=== PATIENT | female | born 1935 | race Caucasian/White ===

== ENCOUNTER → 2016-11-06 | Day surgery (SDC) | payer MEDICARE, OTHER ==
[~2016-11-06] MED LIST: AMIODARONE 200200 MG PO; ASPIRIN 325MG325 MG PO; ASPIRIN 81MG TA81 MG PO; BACTRIM 400 MG-1 TAB PO; CARVEDILOL3.125 MG PO; DIGOXIN0.125 MG PO; DILTIAZEM ER 3300 MG PO; FERROUS SULFAT325 M2 PO; LIPITOR40 MG PO; LISINOPRIL 10MG10 MG PO; LISINOPRIL2.5 MG PO; LOPRESSOR 25MG.25 MG PO; PACERONE200 MG PO; PANTOPRAZOLE SO40 MG PO; PATANASE0.6% NS; PRADAXA150 MG PO; PRILOSEC20 M1 PO; RANITIDINE HCL150 MG PO; SPIRONOLACTONE25 MG NG; SYNTHROID 0.1M0.1 MG PO; XARELTO20 MG PO
--- NOTE | 2016-11-06 09:05 | Procedure Note ---
Cardioversion Date of procedure: 11/06/16 Performing provider: Marcello Marlow PA-C with Dr. Smith present Procedure performed: Synchronized electrical cardioversion Diagnosis: A. fib/flutter with CVR Procedure summary: After informed consent obtained, a combination of versed and fentanyl was used to obtain adequate sedation prior to a single, syncronized 150J shock delivered. Successful cardioversion from a. fib/flutter with CVR to sinus bradycardia. Patient tolerated the procedure without complications. Complications: None Conclusion: Successful electrical cardioversion to sinus rhythm. at 0904
== END ==
LOC: CATHLAB 06:41
PROVIDERS: Internal Medicine
PROC: 5A2204Z Restoration of Cardiac Rhythm, Single (ICD-10-PCS; principal; 2016-11-06 08:00)
DX: I48.91 Unspecified atrial fibrillation (principal); I48.92 Unspecified atrial flutter

== ENCOUNTER 2017-01-28 22:00 | Emergency (ER) | payer MEDICARE, OTHER ==
[~2017-01-28] VITALS: Ht 162.6 cm; Wt 64.9 kg
--- NOTE | 2017-01-28 22:18 | Emergency Room Report ---
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 N Clinical Suspician of Infection? N Mental Status: 1 - Regular (Normal Baseline) Sepsis Risk:Low Sepsis Risk Have you (or family members/close friends) recently traveled outside the [place]? N If Yes, where/when: Have you had exposure to infectious disease within the past month? N TB? Other? Specify: Source patient, RN notes reviewed, family, old records Exam Limitations no limitations Comment episode of dizzyness during this pm with no syncope or chest pain has been going on over the last few days Cardiac Chest Pain Chest pain indicative of cardiac No Timing/Duration this evening Severity moderate ALLERGIES Coded Allergies: codeine (Intermediate, "DEATHLY SICK" 06/26/15) Home Medications Reported Medications Levothyroxine Sodium (Synthroid 0.1MG) 0.137 MG PO DAILY Pantoprazole Sodium (Pantoprazole 40MG) 40 MG PO BID ASPIRIN (Aspirin 325MG) 325 MG PO DAILY PRN BLOOD THINNER LISINOPRIL (Lisinopril) 10 MG PO TID Spironolactone (Spironolactone) 25 MG NG DAILY Carvedilol (Carvedilol 3.125MG) 25 MG PO BID History Medical History General CAD? No Angina: Yes [place]: No Hypertension? Yes Hyperlipidemia? No CHF? Yes DVT? No PE? No COPD? No Asthma? No Anemia? Yes GERD? Yes Gastric ulcers? No GI Bleed? No Hernia? No Thyroid Problems? No Hypothyroidism? Yes CVA? No Seizures? No Diabetes? No Renal Insuffiency? No End Stage Renal Disease? No UTI? No Stones? No BPH? No GB Disease: No Nephritic Syndrome? No Asplenia? No Hepatitis? No Sickle Cell Disease? No Arthritis? No Migraines? No Cataracts? No Glaucoma? No MRSA? No HIV? No TB? No Anxiety? No Depression? No Cancer? No More? No Immunization Hx DT/Tetanus 5-10 Years Ago Flu 2016-17FSN Pneumonia Received In Past Surgical Hx Previous Surgery?Y COLONOSCOPY EGD CARDIAC STENTS DISC FUSION NECK MITRAL VALVE REPLACEMENT PACER/DEFIB PLACEMENT Family History Family Hx Diabetes No CAD No Hypertension No Hyperlipidemia No Cancer Yes TB No Social History Smoking Hx Smoker: Never Smoker Tobacco: No Alcohol Alcohol: No Drugs none Review of Systems All Other Systems Reviewed and Negative Constitutional see HPI, denies fever, weakness Eyes denies drainage ENT denies: ear pain, epistaxis, throat pain. Respiratory denies cough, denies shortness of breath, denies wheezing Cardiovascular denies chest pain, denies syncope Gastrointestinal denies abdominal pain, denies diarrhea, denies vomiting Genitourinary denies: dysuria, frequency, hesitancy, hematuria. Musculoskeletal denies back pain, denies joint pain, denies joint swelling, denies neck pain Skin denies rash Psychiatric/Neurological denies headache, denies seizure Physical Exam Vital Signs Vital Signs Date Time Temp Pulse Resp B/P Pulse O2 O2 Flow FiO2 Ox Delivery Rate 01/28 2352 97.8 60 20 127/71 94 01/28 2205 97.8 70 20 171/92 95 - WBC >12,000 or <4,000 or 10% bands? 2 or more SIRS Criteria Met? B/P:171/92 MAP:118 Creatinine >2.0? UA output<0.5ml/kg/hr for 2 hrs? Platelet count >100,000? Lactate >2.0mmol/1? INR >1.2 or PTT > than 60 sec? Evidence of Organ Dysfunction? Provider documented clinical suspician of infection? N Sepsis Criteria Count: 1 Sepsis Risk: Low Sepsis Risk General Appearance no apparent distress Eye Exam - bilateral eye PERRL, bilateral eye EOMI Ear, Nose, Throat normal ENT inspection Neck non-tender Respiratory Status No: respiratory distress. Lung Sounds bilateral: lungs clear. 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 No Results/Orders Laboratory Tests 01/28/172319: Urine Color YELLOW, Urine Appearance CLEAR, Urine pH 6.0, Ur Specific [place] 1.010, Urine Protein NEGATIVE, Urine Ketones NEGATIVE, Urine Blood TRACE-LYSED, Urine Nitrate POSITIVE H, Urine Bilirubin NEGATIVE, Urine Urobilinogen 0.2, Ur Leukocyte Esterase 1+ H, Urine WBC 5-10, Ur Squamous Epith Cells OCC, Urine Bacteria 4+, Urine Glucose NEGATIVE 01/28/172229: TSH 0.68, Thyroxine (T4) 12.9 01/28/172229: Sodium 140, Potassium 4.5, Chloride 108 H, Carbon Dioxide 26, BUN 27 H, Creatinine 1.3 H, Estimated Creat Clear 35 L, Estimated GFR (MDRD) 39 L, Glucose 115 H, Calcium 9.1, Total Bilirubin 0.6, AST 20, ALT 19, Alkaline Phosphatase 61, Creatine Kinase 102, CK-MB (CK-2) Rel Index 2.6, CK and CKMB Interp 2.7, Troponin I < 0.02, Total Protein 6.7, Albumin 3.8, Globulin 2.9, Albumin/Globulin Ratio 1.3, WBC 5.6, RBC 4.57, Hgb 13.7, Hct 41.2, MCV 90.2, RDW 14.5, Plt Count 110 L, MPV 8.5, Gran % 67.9, Gran # 3.8, Lymphocytes % 18.6, Monocytes % 7.7, Eosinophils % 5.0, Basophils % 0.8, Lymphocytes # 1.0, Monocytes # 0.4, Eosinophils # 0.3, Basophils # 0.0, PUBS MCHC 33.3, MCH 30.1 Current Medication Orders Sig/Brittaney Start time Last Medication Dose Route Stop Time Status Admin Ceftriaxone Sodium 0 .STK-MED ONE 01/29 2348 DC IV Sodium Chloride 50 ML .STK-MED ONE 01/28 2347 DC IV Ceftriaxone Sodium 1 GM ONCE ONE 01/28 2345 DC 01/28 Sodium Chloride 50 ML IV 01/29 Sodium Chloride 10 ML PRN PRN 01/28 2215 AC IV 01/29 2215 Orders Procedure Date/time Status THYROID STIMULATING HORMONE 01/28 2346 Complete THYROXINE (T4) 01/28 2346 Complete CULTURE, URINE 01/29 2320 Active URINALYSIS/COMPLETE 01/29 2320 Complete ELECTROCARDIOGRAM REQUEST 01/28 2215 Active CHEST-PORTABLE 01/28 2215 Active IV SALINE LOCK 01/28 2215 Active BAGGAGE AND MAIL AGENT 01/28 2215 Active CBC WITH AUTO DIFF 01/28 2215 Complete CARDIAC ENZYMES 01/28 2215 Complete CHEM 12 PROFILE 01/28 2215 Complete CM/EKG CM/emergency response coordinator Rhythm Normal Sinus Rhythm EKG compared w/(date of old), non-spec. ST/Twave chgs XRAY/CT/US XRAY/CT/US XRAY chest XR interpretation by reviewed by me Xray Results normal/NAD Departure Departure Time of Disposition 2346 Disposition DC Home or Self Care(routine) Clinical Impression Primary Impression: Dizziness Secondary Impressions: UTI (urinary tract infection) Qualifiers: Urinary tract infection type: acute cystitis Hematuria presence: without hematuria Qualified Code: N30.00 - Acute cystitis without hematuria Condition STABLE Referrals Melvin Mccarthy MD (Family) Patient Instructions DI for Dizziness-Nonvertigo Additional Instructions fluids and dec beta joaquin and use meds as directed Discharge Counseling Counseled pt/family regarding diagnosis, test results, medications/RX, follow up needs Prescriptions Current Visit Scripts CEPHALEXIN (Keflex 500MG Capsule) 500 MG PO Q12H #12 CAP ED Critical Care Critical Care No at 0025
--- NOTE | 2017-01-28 22:18 | Emergency Room Report ---
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 N Clinical Suspician of Infection? N Mental Status: 1 - Regular (Normal Baseline) Sepsis Risk:Low Sepsis Risk Have you (or family members/close friends) recently traveled outside the [place]? N If Yes, where/when: Have you had exposure to infectious disease within the past month? N TB? Other? Specify: Source patient, RN notes reviewed, family, old records Exam Limitations no limitations Comment episode of dizzyness during this pm with no syncope or chest pain has been going on over the last few days Cardiac Chest Pain Chest pain indicative of cardiac No Timing/Duration this evening Severity moderate ALLERGIES Coded Allergies: codeine (Intermediate, "DEATHLY SICK" 06/26/15) Home Medications Reported Medications Levothyroxine Sodium (Synthroid 0.1MG) 0.137 MG PO DAILY Pantoprazole Sodium (Pantoprazole 40MG) 40 MG PO BID ASPIRIN (Aspirin 325MG) 325 MG PO DAILY PRN BLOOD THINNER LISINOPRIL (Lisinopril) 10 MG PO TID Spironolactone (Spironolactone) 25 MG NG DAILY Carvedilol (Carvedilol 3.125MG) 25 MG PO BID History Medical History General CAD? No Angina: Yes [place]: No Hypertension? Yes Hyperlipidemia? No CHF? Yes DVT? No PE? No COPD? No Asthma? No Anemia? Yes GERD? Yes Gastric ulcers? No GI Bleed? No Hernia? No Thyroid Problems? No Hypothyroidism? Yes CVA? No Seizures? No Diabetes? No Renal Insuffiency? No End Stage Renal Disease? No UTI? No Stones? No BPH? No GB Disease: No Nephritic Syndrome? No Asplenia? No Hepatitis? No Sickle Cell Disease? No Arthritis? No Migraines? No Cataracts? No Glaucoma? No MRSA? No HIV? No TB? No Anxiety? No Depression? No Cancer? No More? No Immunization Hx DT/Tetanus 5-10 Years Ago Flu 2016-17FSN Pneumonia Received In Past Surgical Hx Previous Surgery?Y COLONOSCOPY EGD CARDIAC STENTS DISC FUSION NECK MITRAL VALVE REPLACEMENT PACER/DEFIB PLACEMENT Family History Family Hx Diabetes No CAD No Hypertension No Hyperlipidemia No Cancer Yes TB No Social History Smoking Hx Smoker: Never Smoker Tobacco: No Alcohol Alcohol: No Drugs none Review of Systems All Other Systems Reviewed and Negative Constitutional see HPI, denies fever, weakness Eyes denies drainage ENT denies: ear pain, epistaxis, throat pain. Respiratory denies cough, denies shortness of breath, denies wheezing Cardiovascular denies chest pain, denies syncope Gastrointestinal denies abdominal pain, denies diarrhea, denies vomiting Genitourinary denies: dysuria, frequency, hesitancy, hematuria. Musculoskeletal denies back pain, denies joint pain, denies joint swelling, denies neck pain Skin denies rash Psychiatric/Neurological denies headache, denies seizure Physical Exam Vital Signs Vital Signs Date Time Temp Pulse Resp B/P Pulse O2 O2 Flow FiO2 Ox Delivery Rate 01/28 2352 97.8 60 20 127/71 94 01/28 2205 97.8 70 20 171/92 95 - WBC >12,000 or <4,000 or 10% bands? 2 or more SIRS Criteria Met? B/P:171/92 MAP:118 Creatinine >2.0? UA output<0.5ml/kg/hr for 2 hrs? Platelet count >100,000? Lactate >2.0mmol/1? INR >1.2 or PTT > than 60 sec? Evidence of Organ Dysfunction? Provider documented clinical suspician of infection? N Sepsis Criteria Count: 1 Sepsis Risk: Low Sepsis Risk General Appearance no apparent distress Eye Exam - bilateral eye PERRL, bilateral eye EOMI Ear, Nose, Throat normal ENT inspection Neck non-tender Respiratory Status No: respiratory distress. Lung Sounds bilateral: lungs clear. 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 No Results/Orders Laboratory Tests 01/28/172319: Urine Color YELLOW, Urine Appearance CLEAR, Urine pH 6.0, Ur Specific [place] 1.010, Urine Protein NEGATIVE, Urine Ketones NEGATIVE, Urine Blood TRACE-LYSED, Urine Nitrate POSITIVE H, Urine Bilirubin NEGATIVE, Urine Urobilinogen 0.2, Ur Leukocyte Esterase 1+ H, Urine WBC 5-10, Ur Squamous Epith Cells OCC, Urine Bacteria 4+, Urine Glucose NEGATIVE 01/28/172229: TSH 0.68, Thyroxine (T4) 12.9 01/28/172229: Sodium 140, Potassium 4.5, Chloride 108 H, Carbon Dioxide 26, BUN 27 H, Creatinine 1.3 H, Estimated Creat Clear 35 L, Estimated GFR (MDRD) 39 L, Glucose 115 H, Calcium 9.1, Total Bilirubin 0.6, AST 20, ALT 19, Alkaline Phosphatase 61, Creatine Kinase 102, CK-MB (CK-2) Rel Index 2.6, CK and CKMB Interp 2.7, Troponin I < 0.02, Total Protein 6.7, Albumin 3.8, Globulin 2.9, Albumin/Globulin Ratio 1.3, WBC 5.6, RBC 4.57, Hgb 13.7, Hct 41.2, MCV 90.2, RDW 14.5, Plt Count 110 L, MPV 8.5, Gran % 67.9, Gran # 3.8, Lymphocytes % 18.6, Monocytes % 7.7, Eosinophils % 5.0, Basophils % 0.8, Lymphocytes # 1.0, Monocytes # 0.4, Eosinophils # 0.3, Basophils # 0.0, PUBS MCHC 33.3, MCH 30.1 Current Medication Orders Sig/Brittaney Start time Last Medication Dose Route Stop Time Status Admin Ceftriaxone Sodium 0 .STK-MED ONE 01/29 2348 DC IV Sodium Chloride 50 ML .STK-MED ONE 01/28 2347 DC IV Ceftriaxone Sodium 1 GM ONCE ONE 01/28 2345 DC 01/28 Sodium Chloride 50 ML IV 01/29 Sodium Chloride 10 ML PRN PRN 01/28 2215 AC IV 01/29 2215 Orders Procedure Date/time Status THYROID STIMULATING HORMONE 01/28 2346 Complete THYROXINE (T4) 01/28 2346 Complete CULTURE, URINE 01/29 2320 Active URINALYSIS/COMPLETE 01/29 2320 Complete ELECTROCARDIOGRAM REQUEST 01/28 2215 Active CHEST-PORTABLE 01/28 2215 Active IV SALINE LOCK 01/[address] 01/28 2215 Active CBC WITH AUTO DIFF 01/28 2215 Complete CARDIAC ENZYMES 01/28 2215 Complete CHEM 12 PROFILE 01/28 2215 Complete CM/EKG CM/machinist mate Rhythm Normal Sinus Rhythm EKG compared w/(date of old), non-spec. ST/Twave chgs XRAY/CT/US XRAY/CT/US XRAY chest XR interpretation by reviewed by me Xray Results normal/NAD Departure Departure Time of Disposition 2346 Disposition DC Home or Self Care(routine) Clinical Impression Primary Impression: Dizziness Secondary Impressions: UTI (urinary tract infection) Qualifiers: Urinary tract infection type: acute cystitis Hematuria presence: without hematuria Qualified Code: N30.00 - Acute cystitis without hematuria Condition STABLE Referrals Melvin Mccarthy MD (Family) Patient Instructions DI for Dizziness-Nonvertigo Additional Instructions fluids and dec beta joaquin and use meds as directed Discharge Counseling Counseled pt/family regarding diagnosis, test results, medications/RX, follow up needs Prescriptions Current Visit Scripts CEPHALEXIN (Keflex 500MG Capsule) 500 MG PO Q12H #12 CAP ED Critical Care Critical Care No at 0025
--- OUTSIDE RECORDS SUMMARY | 2017-01-28 22:22 | External Medical Summary Rpt | CCD ---
Author Author ADRIANO Address Unknown Phone [email or web address] Purpose Continuity of Care Document - 10-29-2016 through 2016
--- OUTSIDE RECORDS SUMMARY | 2017-01-28 22:22 | External Medical Summary Rpt | CCD ---
Author Author [employer] Organization [employer] Address Unknown Phone Unavailable Purpose Continuity of Care Document - through 2016
--- OUTSIDE RECORDS SUMMARY | 2017-01-28 22:22 | External Medical Summary Rpt | CCD ---
Author Author , ADRIANO [place] Address Unknown Phone [email or web address] Immunization Name Date Rout CVX Reac Dose Comm Prov Is Faci e tion ent ider Refu lity Give sed n Infl 10-2 Intr 0.5 Hist PD20 No PD20 uenz 4-20 amus mL oric 256 256 a 17 cula al Quad r Info rmat W/Pr ion es - Sour ce Unsp ecif ied Zost 04-1 Subc 121 0.65 Hist WALM No WALM er 3-20 utan mL oric ART5 ART5 17 eous al 91 91 Info rmat ion - Sour ce Unsp ecif ied Zost 04-1 Intr 121 999 Hist PD20 No PD20 er 2-20 amus oric 255 255 17 cula al r Info rmat ion - Sour ce Unsp ecif ied PCV1 03-2 Intr 133 0.5 Hist PD20 No PD20 3 1-20 amus mL oric 256 256 17 cula al r Info rmat ion - Sour ce Unsp ecif ied
--- OUTSIDE RECORDS SUMMARY | 2017-01-28 22:22 | External Medical Summary Rpt ---
Author Author ADRIANO Layne, ADRIANO [employer] Organization [employer] Address Unknown Phone Unavailable Results Basic metabolic panel in Blood Observa Value Referen Units Interpr Notes Date tion ce etation Range Urea 7 - 18 mg/dL Normal No Oct 29 nitrogen informati 2016 [Mass/vol on in 11:24 AM ume] in source Serum or data Plasma Calcium 8.5 - mg/dL Normal No Oct 29 [Mass/vol 10.1 informati 2016 ume] in on in 11:24 AM Serum or source Plasma data Chloride 98 - 107 mmoL/L Normal No Oct 29 [Moles/vo informati 2016 lume] in on in 11:24 AM Serum or source Plasma data Carbon 21.0 - mmoL/L Normal No Oct 29 dioxide, 32.0 informati 2016 total on in 11:24 AM [Moles/vo source lume] in data Serum or Plasma Creatinin 0.55 - mg/dL Normal No Oct 29 e 1.02 informati 2016 [Mass/vol on in 11:24 AM ume] in source Serum or data Plasma Estimated 59- ML/MIN Low REFERENCE Oct 29 RANGE: 2017 glomerula >60 11:24 AM r ML/MIN/1. filtratio 73 SQUARE n rate METERSIf (GF this patient is -A merican, then multiply theresult by 1.210. Glucose 74 - 106 mg/dL Normal No Oct 29 [Mass/vol informati 2016 ume] in on in 11:24 AM Serum or source Plasma data Potassium 3.5 - 5.1 mmoL/L Normal No Oct 29 informati 2016 [Moles/vo on in 11:24 AM lume] in source Serum or data Plasma Sodium 136 - 145 mmoL/L Normal No Oct 29 [Moles/vo informati 2016 lume] in on in 11:24 AM Serum or source Plasma data Thyroxine (T4) free [Mass/volume] in Serum or Plasma Observa Value Referen Units Interpr Notes Date ti ce etation Range Thyroxine 0.76 - ng/dL Normal No Oct 29 (T4) 1.46 informati 2016 free on in 11:24 AM [Mass/vol source ume] in data Serum or Plasma Hepatic function 2000 panel in Serum or Plasma Observa Value Referen Units Interpr Notes Date tion ce etation Range Albumin 3.4 - 5.0 gm/dL Normal No Oct 29 [Mass/vol informati 2016 ume] in on in 11:24 AM Serum or source Plasma data Alkaline 46 - 116 U/L Normal No Oct 29 phosphata informati 2016 se on in 11:24 AM [Enzymati source c data activity/ volume] in Serum or Plasma Bilirubin 0.0 - 0.2 mg/dL Normal No Oct 29 .direct informati 2017 [Mass/vol on in 11:24 AM ume] in source Serum or data Plasma Bilirubin 0 - 0.9 mg/dL Normal No Oct 29 .indirect informati 2017 on in 11:24 AM [Mass/vol source ume] in data Serum or Plasma Bilirubin 0.2 - 1.0 mg/dL Normal No Oct 29 .total informati 2017 [Mass/vol on in 11:24 AM ume] in source Serum or data Plasma Aspartate 15 - 37 U/L Normal No Oct 29 informati 2016 aminotran on in 11:24 AM sferase source [Enzymati data c activity/ volume] in Serum or Plasma Alanine 12 - 78 U/L Normal No Oct 29 aminotran informati 2016 sferase on in 11:24 AM [Enzymati source c data activity/ volume] in Serum or Plasma Protein 6.4 - 8.2 gm/dL Normal No Oct 29 [Mass/vol informati 2016 ume] in on in 11:24 AM Serum or source Plasma data Thyrotropin [Units/volume] in Serum or Plasma Observa Value Referen Units Interpr Notes Date ti ce etation Range Thyrotrop 0.358 - uIU/ml Low No Oct 29 in 3.740 informati 2016 [Units/vo on in 11:24 AM lume] in source Serum or data Plasma CBC W Auto Differential panel in Blood Observa Value Referen Units Interpr Notes Date ti ce etation Range Basophils 0 - 0.2 K/MM3 Normal No Oct 29 informati 2016 [#/volume on in 11:24 AM ] in source Blood by data Automated count Basophils 0.1 - 2.0 % Normal No Aug 8 /100 informati 2017 leukocyte on in 11:24 AM s in source Blood by data Automated count Eosinophi 0.0 - 0.4 K/mm3 Normal No Oct 29 ls informati 2016 [#/volume on in 11:24 AM ] in source Blood by data Automated count Eosinophi 0.1 - % Normal No Oct 29 ls/100 12.0 inform2016 leukocyte on in 11:24 AM s in source Blood by data Automated count Granulocy 1.8 - 7.8 K/mm3 Normal No Oct 29 miah inform2016 [#/volume on in 11:24 AM ] in source Blood by data Automated count Granulocy 37.0 - % Normal No Oct 29 miah/100 80.0 inform2016 leukocyte on in 11:24 AM s in source Blood by data Automated count Hematocri 37.0 - % Normal No Oct 29 t [Volume 47.0 ati 2016 on in 11:24 AM Fraction] source of Blood data Hemoglobi 12.2 - g/dL Normal No Oct 29 n 16.2 inform2016 [Mass/vol on in 11:24 AM ume] in source Blood data Lymphocyt 0.7 - 4.5 K/mm3 Normal No Oct 29 es 2016 [#/volume on in 11:24 AM ] in source Unspecifi data ed specimen by Automated count Lymphocyt 10 - 50.0 % Normal No Oct 29 es 2016 [#/volume on in 11:24 AM ] in source Unspecifi data ed specimen by Automated count Erythrocy 27 - 31.2 pg Normal No Oct 29 te mean 2016 corpuscul on in 11:24 AM ar source hemoglobi data n [Entitic mass] Erythrocy 31.8 - g/dl Normal No Oct 29 te mean 35.4 inform2016 corpuscul on in 11:24 AM ar source hemoglobi data n concentra tion [Mass/vol ume] by Automated count Erythrocy 82.2 - fl Normal No Oct 29 te mean 97.8 inform2016 corpuscul on in 11:24 AM ar volume source [Entitic data volume] by Automated count Monocytes 0.1 - 1.0 K/mm3 Normal No Oct 29 inform2016 [#/volume on in 11:24 AM ] in source Blood by data Automated count Monocytes 1.7 - 9.3 % Normal No Oct 29 /100 informati 2017 leukocyte on in 11:24 AM s in source Blood by data Automated count Platelet 7.4 - fl Normal No Oct 29 mean 10.4 informati 2016 volume on in 11:24 AM [Entitic source volume] data in Blood by Automated count Platelets 142 - 424 K/mm3 Normal No Oct 29 informati 2016 [#/volume on in 11:24 AM ] in source Blood data Erythrocy 4.2 - 5.4 M/mm3 Normal No Oct 29 miah inform2016 [#/volume on in 11:24 AM ] in source Amniotic data fluid Erythrocy 11.5 - % Normal Oct 29 te 17.5 ati 2016 distribut on in 11:24 AM ion width source [Entitic data volume] by Automated count Leukocyte 4.8 - K/MM3 Normal No Oct 29 s 10.8 informati 2016 [#/volume on in 11:24 AM ] in source Blood data
--- OUTSIDE RECORDS SUMMARY | 2017-01-28 22:22 | External Medical Summary Rpt | CCD ---
Author Author ADRIANO Address Unknown Phone [email or web address] Purpose Continuity of Care Document - 10-29-2016 through 2016
--- OUTSIDE RECORDS SUMMARY | 2017-01-28 22:22 | External Medical Summary Rpt | CCD ---
Author Author , ADRIANO [place] Address Unknown Phone [email or web address] Immunization Name Date Rout CVX Reac Dose [...]
[2017-01-28 23:04] LABS: HEMOGLOBIN 13.7 g/dL (12.2-16.2); LYMPH % 18.6 % (10-50.0)
[2017-01-28 23:13] LABS: BUN 27 mg/dL (7-18); GFR (ESTIMATED) 39 ML/MIN (59-)
[2017-01-28 23:35] LABS: URINE BILIRUBIN - DIPSTICK NEGATIVE (NEG); URINE BLOOD TRACE-LYSED (NEG)
[2017-01-28 23:43] LABS: URINE SQUAMOUS CELLS OCC #/hpf (0-5)
[2017-01-29] MEDS ORDERED: KEFLEX 500MG.500 MG PO (00:24)
[2017-01-29 00:33] VITALS: BP 105/67
--- NOTE | 2017-01-29 04:34 | RADIOLOGY REPORT PS360 ---
CHEST-PORTABLE HISTORY: C/O DIZZINESS AND COLD SWEATS ORDERING PHYSICIAN: Carlos Ramos MD PATIENT AGE: 81 years COMPARISON: 12/06/2016 FINDINGS: Prior median sternotomy. Borderline cardiomegaly without failure. 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 There has been prior left atrial appendage clipping. There are chronic changes in the lungs with no lobar consolidation or collapse. IMPRESSION: 1. No acute finding. 2. Postsurgical and chronic change as detailed above
== END 2017-01-29 00:34 | disposition home or self-care (01) ==
LOC: ER 22:00
PROVIDERS: Emergency Medicine
DX: N30.00 Acute cystitis without hematuria (principal); E03.9 Hypothyroidism, unspecified; K21.9 Gastro-esophageal reflux disease without esophagitis; I10 Essential (primary) hypertension; Z88.6 Allergy status to analgesic agent

== ENCOUNTER 2017-02-21 16:04 | Emergency (ER) | payer MEDICARE, OTHER ==
[~2017-02-21] VITALS: Ht 162.6 cm; Wt 63.5 kg
[~2017-02-21 16:04] MED LIST changes: +KEFLEX 500MG.500 MG PO
--- OUTSIDE RECORDS SUMMARY | 2017-02-21 16:28 | External Medical Summary Rpt | CCD ---
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, UNSPECIFIED I48.91 UNSPECIFIED ATRIAL FIBRILLATIO N I50.9 HEART FAILURE, UNSPECIFIED J18.9 PNEUMONIA, UNSPECIFIED ORGANISM J90 PLEURAL EFFUSION, NOT ELSEWHERE CLASSIFIED K52.9 NONINFECTIV E GASTROENTER ITIS AND COLITIS, UNSPECIFIED N39.0 URINARY TRACT INFECTION, SITE NOT SPECIFIED R00.2 PALPITATION S R06.00 DYSPNEA, UNSPECIFIED R07.9 CHEST PAIN, UNSPECIFIED R09.02 HYPOXEMIA R42 DIZZINESS AND GIDDINESS Z78.0 ASYMPTOMATI C MENOPAUSAL STATE Results Labs Lab Lab Date Result Refere Interp Status Commen Order Detail nces retati t Range on Antibiotic sensitivity studies (01-30-2017 06:18) Ampicil >= 32 complet shannon 017 ug/ml ed suscept 06:18 ibility test by minimum inhibit ory concent ration Amoxici >= 32 complet llin/cl 017 ug/ml ed avulana 06:18 te suscept ibility test by minimum inhibit ory concent ration Ceftazi <= 1 complet dime/po 017 ug/ml ed tassium 06:18 clavula liza suscept ibility test by minimum inhibit ory concent ration Ceftria <= 1 complet xone 017 ug/ml ed suscept 06:18 ibility test by minimum inhibit ory concent ration Cefazol = 16 complet in 017 ug/ml ed suscept 06:18 ibility test by minimum inhibit ory concent ration Extende = ug/ml complet d 017 ed spectru 06:18 m beta lactama se (ESBL) produci ng bacteri a suscept ibility test by minimum inhibit ory Ertapen <= 0.5 complet em 017 ug/ml ed suscept 06:18 ibility test by minimum inhibit ory concent ration Cefepim <= 1 complet e 017 ug/ml ed suscept 06:18 ibility test by minimum inhibit ory concent ration Nitrofu <= 16 complet rantoin 017 ug/ml ed 06:18 suscept ibility test by minimum inhibit ory concent ration Gentami <= 1 complet venkata 017 ug/ml ed suscept 06:18 ibility test by minimum inhibit ory concent ration Imipene <= 0.25 complet m 017 ug/ml ed suscept 06:18 ibility test by minimum inhibit ory concent ration Levoflo <= 0.12 complet xacin 017 ug/ml ed suscept 06:18 ibility test by minimum inhibit ory concent ration Ampicil >= 32 complet shannon/sul 017 ug/ml ed bactam 06:18 suscept ibility test by minimum inhibit ory concent ration Trimeth <= 20 complet oprim/s 017 ug/ml ed ulfamet 06:18 hoxazol e suscept ibility test by minimum inhibit ory concent ration Tobramy <= 1 complet venkata 017 ug/ml ed suscept 06:18 ibility test by minimum inhibit ory concent ration Piperac <= 4 complet illin/t 017 ug/ml ed azobact 06:18 am suscept ibility test by minimum inhibit ory concent ration Urinalysis with microscopy (01-28-2017 23:20) Urine CLEAR CLEAR complet appeara 017 CLEAR L ed nce 23:20 determi nation Bacteri 4+ 4+ L O complet a 017 ed detecti 23:20 on in urine sedimen t by Urine NEGATIV NEG complet total 017 E ed bilirub 23:20 NEGATIV in E L detecti on by test Urine TRACE-L NEG complet blood 017 YSED ed detecti 23:20 TRACE-L on YSED L Urine YELLOW YELLOW complet color 017 YELLOW ed 23:20 L Glucose = NEG complet ur 017 NEGATIV ed test 23:20 E strip Urine NEGATIV NEG complet ketones 017 E ed 23:20 NEGATIV detecti E L on by mg/dL automat ed miah Mucus 1+ 1+ L NEG complet detecti 017 ed on in 23:20 urine sedimen t by lig Urine POSITIV NEG complet nitrite 017 E ed 23:20 POSITIV detecti E L on by test strip Urine = 6.0 5.0-8.5 complet pH 017 ed 23:20 Urine = NEG complet protein 017 NEGATIV ed 23:20 E mg/dL measure ment by automat ed t Urine = 1.010 1.005-1 complet specifi 017 .030 ed c 23:20 gravity measure ment [place] OCC OCC 0-5 complet s 017 L ed epithel 23:20 #/hpf ial cells detecti on in u Urine 0.2 0.2 NEG complet urobili 017 L ed nogen 23:20 E.U./dL detecti on by test str Urine 5 - 10 O complet leukocy 017 wbc/hpf ed miah 23:20 count (number /volume ) Urine culture (01-28-2017 23:20) Urine [id number] complet culture 017 07 ed 23:20 Escheri william coli SCT EC ESCHERI WILLIAM COLI L Urinalysis dipstick W Reflex Microscopic panel in Urine (01-28-2017 23:20) Bacteri 4+ O complet a 017 ed [Presen 23:20 ce] in Urine sedimen t by Light microsc opy Epithel OCC 0#/hp complet ial 017 f - ed cells.s 23:20 5#/hp quamous f [Presen ce] in Urine sedimen t by Microsc opy high power field Leukocy 5-10 O complet miah 017 wbc/hpf ed [#/volu 23:20 me] in Urine Urinalysis dipstick W Reflex Microscopic panel in Urine (01-28-2017 23:20) Appeara CLEAR CLEAR complet nce of 017 ed Urine 23:20 Bilirub NEGATIV NEG complet in 017 E ed [Presen 23:20 ce] in Urine by Test strip Erythro TRACE-L NEG complet cytes 017 YSED ed [Presen 23:20 ce] in Urine Color YELLOW YELLOW complet of 017 ed Urine 23:20 Ketones NEGATIV NEG complet 017 E ed [Presen 23:20 ce] in Urine by Automat ed test strip Mucus 1+ NEG Abnorma complet [Presen 017 l ed ce] in 23:20 Urine sedimen t by Light microsc opy Nitrite POSITIV NEG Abnorma complet 017 E l ed [Presen 23:20 ce] in Urine by Test strip Urobili 0.2 NEG complet nogen 017 ed [Presen 23:20 ce] in Urine by Test strip CBC w auto diff (01-28-2017 22:30) Automat = 0.0 0-0.2 complet ed 017 K/MM3 ed blood 22:30 basophi l count (count/ vo Baso % = 0.8 % 0.1-2.0 complet 017 ed 22:30 Automat = 0.3 0.0-0.4 complet ed 017 K/mm3 ed blood 22:30 eosinop hil count Automat = 5.0 % 0.1-12. complet ed 017 0 ed blood 22:30 eosinop hils/10 0 leukocy t Blood = 41.2 37.0-47 complet hematoc 017 % .0 ed rit 22:30 (volume fractio n) Blood = 13.7 12.2-16 complet hemoglo 017 g/dL .2 ed bin 22:30 measure ment (mass/v olum Absolut = 1.0 0.7-4.5 complet e 017 K/mm3 ed lymphoc 22:30 yte count Lymphoc = 18.6 10-50.0 complet yte 017 % ed count, 22:30 blood, automat ed Mean = 30.1 27-31.2 complet corpusc 017 pg ed ular 22:30 hemoglo bin (MCH) determ Automat = 33.3 31.8-35 complet ed 017 g/dl .4 ed erythro 22:30 cyte mean corpusc ular h Automat = 90.2 82.2-97 complet ed 017 fl .8 ed erythro 22:30 cyte mean corpusc ular v Absolut = 0.4 0.1-1.0 complet e 017 K/mm3 ed monocyt 22:30 e count [place] % = 7.7 % 1.7-9.3 complet 017 ed 22:30 Automat = 8.5 7.4-10. complet ed 017 fl 4 ed blood 22:30 platele t mean volume basia Blood = 110 142-424 complet platele 017 K/mm3 ed t count 22:30 Red = 4.57 4.2-5.4 complet blood 017 M/mm3 ed cell 22:30 count Automat = 14.5 11.5-17 complet ed 017 % .5 ed erythro 22:30 cyte distrib ution width Blood = 5.6 4.8-10. complet leukocy 017 K/MM3 8 ed miah 22:30 count (number /volume ) Blood = 3.8 1.8-7.8 complet granulo 017 K/mm3 ed cytes 22:30 automat ed count (numb Granulo = 67.9 37.0-80 complet cyte 017 % .0 ed percent 22:30 age Cardiac enzymes (01-28-2017 22:30) Serum = 2.6 0-4.0 complet or 017 U/L ed plasma 22:30 creatin e kinase MB (CK-M Serum = 2.7 0.0-3.6 complet or 017 ng/mL ed plasma 22:30 creatin e kinase MB measu Serum = 102 26-192 complet or 017 U/L ed plasma 22:30 creatin e kinase measure m Serum < 0.02 0.00-0. complet or 017 ng/mL 06 ed plasma 22:30 troponi n i.cardi ac measu Comprehensive metabolic panel (01-28-2017 22:30) Serum = 1.3 1.1-1.8 complet or 017 ed plasma 22:30 albumin /globul in mass ra Serum = 3.8 3.4-5.0 complet or 017 gm/dL ed plasma 22:30 albumin measure ment (mas Serum = 61 46-116 complet or 017 U/L ed plasma 22:30 alkalin e phospha tase basia Serum = 0.6 0.2-1.0 complet or 017 mg/dL ed plasma 22:30 total bilirub in measure m Serum = 27 7-18 complet or 017 mg/dL ed plasma 22:30 urea nitroge n measure men Serum = 9.1 8.5-10. complet or 017 mg/dL 1 ed plasma 22:30 calcium measure ment (mas Serum = 108 98-107 complet or 017 mmoL/L ed plasma 22:30 chlorid e measure ment (mo Carbon = 26 21.0-32 complet dioxide 017 mmoL/L .0 ed 22:30 measure ment Serum = 1.3 0.55-1. complet or 017 mg/dL 02 ed plasma 22:30 creatin ine measure ment ( Estimat = 35 50-200 complet ion of 017 ML/MIN ed creatin 22:30 ine renal clearan ce Estimat = 39 59- complet ed 017 ML/MIN ed glomeru 22:30 lar filtrat ion rate (GF Comment: REFERENCE RANGE: >60 ML/MIN/1.73 SQUARE METERS Comment: If this patient is -[place], then multiply the Comment: result by 1.210. Serum = 2.9 1.3-3.2 complet globuli 017 gm/dL ed n 22:30 measure ment (mass/v olume) Serum = 115 74-106 complet or 017 mg/dL ed plasma 22:30 glucose measure ment (mas Serum = 4.5 3.5-5.1 complet potassi 017 mmoL/L ed um 22:30 measure ment Serum = 140 136-145 complet sodium 017 mmoL/L ed measure 22:30 ment Serum = 20 15-37 complet or 017 U/L ed plasma 22:30 asparta te aminotr ansfera ALT = 19 12-78 complet (SGPT) 017 U/L ed ser/roldan 22:30 s Protein = 6.7 6.4-8.2 complet total 017 gm/dL ed ser/roldan 22:30 s Thyroxine (01-28-2017 22:30) Thyroxi = 12.9 4.7-13. complet ne 017 ug/dl 3 ed 22:30 Serum or plasma thyroid stimulating horm (01-28-2017 22:30) Serum = 0.68 0.358-3 complet or 017 uIU/ml .740 ed plasma 22:30 thyroid stimula ting horm
--- OUTSIDE RECORDS SUMMARY | 2017-02-21 16:28 | External Medical Summary Rpt | CCD ---
Author Author , ADRIANO [place] Address Unknown Phone [email or web address] Immunization Name Date Rout CVX Reac Dose [...]
--- OUTSIDE RECORDS SUMMARY | 2017-02-21 16:28 | External Medical Summary Rpt | CCD ---
Author Author , ADRIANO Organization ADRIANO Address Unknown Phone [email or web address] Purpose Continuity of Care Document - 10-29-2016 through 2016 Problems Code Diagnosis DOS Provider Status D64.9 ANEMIA, UNSPECIFIED E03.9 HYPOTHYROID ISM, UNSPECIFIED E86.0 DEHYDRATION I25.10 ATHSCL HEART DISEASE OF [place] CORONARY ARTERY W/O ANG PCTRS I31.3 PERICARDIAL [...] /volume ) Urine culture (01-28-2017 23:20) Urine [id number] complet culture 017 07 ed 23:20 Escheri [...] 017 K/mm3 ed monocyt 22:30 e count [place] % = 7.7 % 1.7-9.3 complet 017 [...] SQUARE METERS Comment: If this patient is -[place], then multiply the Comment: result by 1.210. [...]
--- OUTSIDE RECORDS SUMMARY | 2017-02-21 16:28 | External Medical Summary Rpt ---
Author Author ADRIANO [place]ne, ADRIANO Production Organization ADRIANO [employer] Address Unknown Phone Unavailable Results Urinalysis dipstick W Reflex Microscopic panel in Urine Observa Value Referen Units Interpr Notes Date tion ce etation Range Appeara CLEAR CLEAR No No No Jan 7 nce of informa informa informa 2017 Urine tion in tion in tion in 11:20 source source source PM data data data Bacteri 4+ O No No No Jan 7 a informa informa informa 2016 [Presen tion in tion in tion in 11:20 ce] in source source source PM Urine data data data sedimen t by Light microsc opy Bilirub NEGATIV NEG No No No Jan 7 in E informa informa informa 2016 [Presen tion in tion in tion in 11:20 ce] in source source source PM Urine data data data by Test strip Erythro TRACE-L NEG No No No Jan 7 cytes YSED informa informa informa 2016 [Presen tion in tion in tion in 11:20 ce] in source source source PM Urine data data data Color YELLOW YELLOW No No No Jan 7 of informa informa informa 2017 Urine tion in tion in tion in 11:20 source source source PM data data data Glucose NEG No No No Jan 7 [Mass/vol informati informati informati 2017 ume] in on in on in on in 11:20 PM Urine by source source source Test data data data strip Ketones NEGATIV NEG mg/dL No No Jan 7 E informa informa 2017 [Presen tion in tion in 11:20 ce] in source source PM Urine data data by Automat ed test strip Mucus 1+ NEG No Abnorma No Jan 7 [Presen informa l informa 2016 ce] in tion in tion in 11:20 Urine source source PM sedimen data data t by Light microsc opy Nitrite POSITIV NEG No Abnorma No Jan 7 E informa l informa 2016 [Presen tion in tion in 11:20 ce] in source source PM Urine data data by Test strip pH of 5.0 - 8.5 No Normal No Jan 7 Urine informati informati 2017 on in on in 11:20 PM source source data data Protein NEG mg/dL No No Jan 7 [Mass/vol informati informati 2017 ume] in on in on in 11:20 PM Urine by source source Automated data data test strip Specific 1.005 - No Normal No Jan 7 gravity 1.030 informati informati 2017 of Urine on in on in 11:20 PM source source data data Epithel OCC 0 - 5 #/hpf No No Jan 28 ial informa informa 2017 cells.s tion in tion in 11:20 quamous source source PM data data [Presen ce] in Urine sedimen t by Microsc opy high power field Urobili 0.2 NEG E.U./dL No No Jan 28 nogen informa informa 2016 [Presen tion in tion in 11:20 ce] in source source PM Urine data data by Test strip Leukocy [5 O wbc/hpf No No Jan 7 miah wbc/hpf informa informa 2016 [#/volu ; 10 tion in tion in 11:20 me] in wbc/hpf source source PM Urine ] data data Urinalysis dipstick W Reflex Microscopic panel in Urine Observa Value Referen Units Interpr Notes Date tion ce etation Range Appeara CLEAR CLEAR No No No Jan 7 nce of informa informa informa 2016 Urine tion in tion in tion in 11:20 source source source PM data data data Bilirub NEGATIV NEG No No No Jan 28 in E informa informa informa 2016 [Presen tion in tion in tion in 11:20 ce] in source source source PM Urine data data data by Test strip Erythro TRACE-L NEG No No No Jan 28 cytes YSED informa informa informa 2016 [Presen tion in tion in tion in 11:20 ce] in source source source PM Urine data data data Color YELLOW YELLOW No No No Jan 7 of informa informa informa 2017 Urine tion in tion in tion in 11:20 source source source PM data data data Glucose NEG No No No Jan 7 [Mass/vol informati informati informati 2016 ume] in on in on in on in 11:20 PM Urine by source source source Test data data data strip Ketones NEGATIV NEG mg/dL No No Jan 28 E informa informa 2016 [Presen tion in tion in 11:20 ce] in source source PM Urine data data by Automat ed test strip Mucus 1+ NEG No Abnorma No Jan 28 [Presen informa l informa 2016 ce] in tion in tion in 11:20 Urine source source PM sedimen data data t by Light microsc opy Nitrite POSITIV NEG No Abnorma No Jan 28 E informa l informa 2016 [Presen tion in tion in 11:20 ce] in source source PM Urine data data by Test strip pH of 5.0 - 8.5 No Normal No Jan 28 Urine informati informati 2016 on in on in 11:20 PM source source data data Protein NEG mg/dL No No Jan 28 [Mass/vol informati informati 2016 ume] in on in on in 11:20 PM Urine by source source Automated data data test strip Specific 1.005 - No Normal No Jan 28 gravity 1.030 informati informati 2016 of Urine on in on in 11:20 PM source source data data Urobili 0.2 NEG E.U./dL No No Jan 28 nogen informa informa 2016 [Presen tion in tion in 11:20 ce] in source source PM Urine data data by Test strip Thyroxine (T4) [Mass/volume] in Serum or Plasma Observa Value Referen Units Interpr Notes Date ti etation Range Thyroxine 4.7 - ug/dl Normal No Jan 28 (T4) 13.3 informati 2016 [Mass/vol on in 10:30 PM ume] in source Serum or data Plasma Thyrotropin [Units/volume] in Serum or Plasma Observa Value Referen Units Interpr Notes Date ti ce etation Range Thyrotrop 0.358 - uIU/ml No No Jan 28 in 3.740 informati informati 2016 [Units/vo on in on in 10:30 PM lume] in source source Serum or data data Plasma CBC W Auto Differential panel in Blood Observa Value Referen Units Interpr Notes Date ti ce etation Range Basophils 0 - 0.2 K/MM3 Normal No Jan 282016 [#/volume on in 10:30 PM ] in source Blood by data Automated count Basophils 0.1 - 2.0 % Normal No Jan 7 /100 inform2016 leukocyte on in 10:30 PM s in source Blood by data Automated count Eosinophi 0.0 - 0.4 K/mm3 Normal No Jan 28 ls inform2016 [#/volume on in 10:30 PM ] in source Blood by data Automated count Eosinophi 0.1 - % Normal No Jan 28 ls/100 12.0 inform2016 leukocyte on in 10:30 PM s in source Blood by data Automated count Granulocy 1.8 - 7.8 K/mm3 Normal No Jan 28 miah inform2016 [#/volume on in 10:30 PM ] in source Blood by data Automated count Granulocy 37.0 - % Normal No Jan 28 miah/100 80.0 inform2016 leukocyte on in 10:30 PM s in source Blood by data Automated count Hematocri 37.0 - % Normal No Jan 28 t [Volume 47.0 ati 2016 on in 10:30 PM Fraction] source of Blood data Hemoglobi 12.2 - g/dL Normal No Jan 28 n 16.2 2016 [Mass/vol on in 10:30 PM ume] in source Blood data Lymphocyt 0.7 - 4.5 K/mm3 Normal No Jan 28 es 2016 [#/volume on in 10:30 PM ] in source Unspecifi data ed specimen by Automated count Lymphocyt 10 - 50.0 % Normal No Jan 28 es 2016 [#/volume on in 10:30 PM ] in source Unspecifi data ed specimen by Automated count Erythrocy 27 - 31.2 pg Normal No Jan 28 te mean 2016 corpuscul on in 10:30 PM ar source hemoglobi data n [Entitic mass] Erythrocy 31.8 - g/dl Normal No Jan 28 te mean 35.4 2017 corpuscul on in 10:30 PM ar source hemoglobi data n concentra tion [Mass/vol ume] by Automated count Erythrocy 82.2 - fl Normal No Jan 28 te mean 97.8 2016 corpuscul on in 10:30 PM ar volume source [Entitic data volume] by Automated count Monocytes 0.1 - 1.0 K/mm3 Normal No Jan 282016 [#/volume on in 10:30 PM ] in source Blood by data Automated count Monocytes 1.7 - 9.3 % Normal No Jan 28 /100 2016 leukocyte on in 10:30 PM s in source Blood by data Automated count Platelet 7.4 - fl Normal No Jan 28 mean 10.4 2016 volume on in 10:30 PM [Entitic source volume] data in Blood by Automated count Platelets 142 - 424 K/mm3 Low No Jan 28 informati 2016 [#/volume on in 10:30 PM ] in source Blood data Erythrocy 4.2 - 5.4 M/mm3 Normal No Jan 28 miah informati 2016 [#/volume on in 10:30 PM ] in source Amniotic data fluid Erythrocy 11.5 - % Normal No Jan 28 te 17.5 informati 2016 distribut on in 10:30 PM ion width source [Entitic data volume] by Automated count Leukocyte 4.8 - K/MM3 Normal No Jan 28 s 10.8 informati 2016 [#/volume on in 10:30 PM ] in source Blood data Basic metabolic panel in Blood Observa Value Referen Units Interpr Notes Date tion ce etation Range Urea 7 - 18 mg/dL Normal No Oct 29 nitrogen 2016 [Mass/vol on in 11:24 AM ume] [...] mmoL/L Normal No Oct 29 dioxide, 32.0 ati 2016 total on in 11:24 AM [Moles/vo source lume] in data Serum or Plasma Creatinin 0.55 - mg/dL Normal No Oct 29 e 1.02 informati 2016 [Mass/vol on in 11:24 AM ume] in source Serum or data Plasma Estimated 59- ML/MIN Low REFERENCE Oct 29 RANGE: 2016 glomerula >60 11:24 AM r ML/MIN/1. filtratio 73 SQUARE n rate METERSIf (GF this patient is -[place], then multiply theresult by 1.210. Glucose 74 - 106 mg/dL Normal No Oct 29 [Mass/vol informati 2016 ume] in on in 11:24 AM Serum or source Plasma data Potassium 3.5 - 5.1 mmoL/L Normal No Oct 29 informati 2017 [Moles/vo on in 11:24 AM lume] in source Serum or data Plasma Sodium 136 - 145 mmoL/L Normal No Oct 29 [Moles/vo informati 2017 lume] in on in 11:24 AM Serum or source Plasma data Thyroxine (T4) free [Mass/volume] in Serum or Plasma Observa Value Referen Units Interpr Notes Date tion ce etation Range Thyroxine 0.76 - ng/dL Normal No Oct 29 (T4) 1.46 informati 2017 free on in 11:24 AM [Mass/vol source ume] in data Serum or Plasma Hepatic function 2000 panel in Serum or Plasma Observa Value Referen Units Interpr Notes Date ti ce etation Range Albumin 3.4 - 5.0 gm/dL Normal No Oct 29 [Mass/vol informati 2017 ume] in on in 11:24 AM Serum or source Plasma data Alkaline 46 - 116 U/L Normal No Oct 29 phosphata informati 2017 se on in 11:24 AM [Enzymati source [...] 37 U/L Normal No Oct 29 informati 2017 aminotran on in 11:24 AM sferase source [Enzymati data c activity/ volume] in Serum or Plasma Alanine 12 - 78 U/L Normal No Oct 29 aminotran informati 2017 sferase on in 11:24 AM [Enzymati source c data activity/ volume] in Serum or Plasma Protein 6.4 - 8.2 gm/dL Normal No Oct 29 [Mass/vol informati 2017 ume] in on in 11:24 AM Serum or source Plasma data Thyrotropin [Units/volume] in Serum or Plasma Observa Value Referen Units Interpr Notes Date tion ce etation Range Thyrotrop 0.358 - uIU/ml Low No Oct 8 in 3.740 informati 2016 [Units/vo on in 11:24 AM lume] in source Serum or data Plasma CBC W Auto Differential panel in Blood Observa Value Referen Units Interpr Notes Date tion ce etation Range Basophils 0 - 0.2 K/MM3 Normal No Oct 29 inform2016 [#/volume on in 11:24 AM ] in source Blood by data Automated count Basophils 0.1 - 2.0 % Normal No Oct 8 /100 informati 2017 leukocyte on in 11:24 AM s in source Blood by data Automated count Eosinophi 0.0 - 0.4 K/mm3 Normal No Oct 29 ls 2016 [#/volume on in 11:24 AM ] in source Blood by data Automated count Eosinophi 0.1 - % Normal No Oct 29 ls/100 12.0 inform2016 leukocyte on in 11:24 AM s in source Blood by data Automated count Granulocy 1.8 - 7.8 K/mm3 Normal No Oct 8 miah 2016 [#/volume on in 11:24 AM ] in source Blood by data Automated count Granulocy 37.0 - % Normal No Oct 8 miah/100 80.0 inform2016 leukocyte on in 11:24 AM s in source Blood by data Automated count Hematocri 37.0 - % Normal No Oct 29 t [Volume 47.0 ati 2016 on in 11:24 AM Fraction] source of Blood data Hemoglobi 12.2 - g/dL Normal No Oct 29 n 16.2 2016 [Mass/vol on in 11:24 AM ume] [...] Normal No Oct 29 te mean 35.4 2016 corpuscul on in 11:24 AM ar source hemoglobi data n concentra tion [Mass/vol ume] by Automated count Erythrocy 82.2 - fl Normal No Oct 29 te mean 97.8 informati 2016 corpuscul on in 11:24 AM ar volume source [Entitic data volume] by Automated count Monocytes 0.1 - 1.0 K/mm3 Normal No Oct 29 informati 2016 [...] 5.4 M/mm3 Normal No Oct 29 miah informati 2016 [#/volume on in 11:24 AM ] in source Amniotic data fluid Erythrocy 11.5 - % Normal No Oct 29 te 17.5 informati 2016 distribut on in 11:24 AM ion width source [Entitic data volume] by Automated count Leukocyte 4.8 - K/MM3 Normal No Oct 29 s 10.8 informati 2016 [#/volume on in 11:24 AM ] in source Blood data
--- OUTSIDE RECORDS SUMMARY | 2017-02-21 16:28 | External Medical Summary Rpt | CCD ---
Author Author , ADRIANO [place] Address Unknown Phone [email or web address] Immunization Name Date Rout CVX Reac Dose [...]
[2017-02-21 16:41] LABS: HEMOGLOBIN 13.4 g/dL (12.2-16.2); LYMPH # 0.2 K/mm3 (0.7-4.5); LYMPH % 3.1 % (10-50.0)
[2017-02-21 16:49] LABS: STREP SCREEN (RAPID) NEGATIVE
[2017-02-21 17:05] LABS: BUN 13 mg/dL (7-18); GFR (ESTIMATED) 48 ML/MIN (59-)
[2017-02-21 17:09] LABS: URINE BILIRUBIN - DIPSTICK NEGATIVE (NEG); URINE BLOOD TRACE-LYSED (NEG)
[2017-02-21 17:16] LABS: NEUTROPHILS 84 % (42-76)
[2017-02-21 17:30] LABS: URINE SQUAMOUS CELLS OCC #/hpf (0-5)
--- NOTE | 2017-02-21 17:34 | Emergency Room Report ---
See Addendum History of Present Illness Time Seen by [id number] Presenting Problem in Triage Pt arrived:Wheelchair Presenting Problem:PT C/O CHILLS, BODY ACHES, VOMITING AND BLOOD PRESSURE SPIKE. 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 N Clinical Suspician of Infection? N Mental Status: 1 - Regular (Normal Baseline) Sepsis Risk:Low Sepsis Risk Have you (or family members/close friends) recently traveled outside the [place]? N If Yes, where/when: Have you had exposure to infectious disease within the past month? N TB? Other? Specify: Malaise, chills today, just not feeling well. Recent UTI, was on Keflex last week. ALLERGIES Coded Allergies: codeine (Intermediate, "DEATHLY SICK" 06/26/15) Home Medications Reported Medications Levothyroxine Sodium (Synthroid 0.1MG) 0.137 MG PO DAILY Pantoprazole Sodium (Pantoprazole 40MG) 40 MG PO BID ASPIRIN (Aspirin 325MG) 325 MG PO DAILY PRN BLOOD THINNER LISINOPRIL (Lisinopril) 10 MG PO TID Spironolactone (Spironolactone) 25 MG NG DAILY Carvedilol (Carvedilol 3.125MG) 25 MG PO BID History Medical History General CAD? No Angina: Yes UT: No Hypertension? Yes Hyperlipidemia? No CHF? Yes DVT? No PE? No COPD? No Asthma? No Anemia? Yes GERD? Yes Gastric ulcers? No GI Bleed? No Hernia? No Thyroid Problems? No Hypothyroidism? Yes CVA? No Seizures? No Diabetes? No Renal Insuffiency? No End Stage Renal Disease? No UTI? No Stones? No BPH? No GB Disease: No Nephritic Syndrome? No Asplenia? No Hepatitis? No Sickle Cell Disease? No Arthritis? No Migraines? No Cataracts? No Glaucoma? No MRSA? No HIV? No TB? No Anxiety? No Depression? No Cancer? No More? No Immunization Hx DT/Tetanus 5-10 Years Ago Flu 2016-FSN Pneumonia Received In Past Surgical Hx Previous Surgery?Y COLONOSCOPY EGD CARDIAC STENTS DISC FUSION NECK MITRAL VALVE REPLACEMENT PACER/DEFIB PLACEMENT Family History Family Hx Diabetes No CAD No Hypertension No Hyperlipidemia No Cancer Yes TB No Social History Smoking Hx Smoker: Never Smoker Tobacco: No Alcohol Alcohol: No Review of Systems All Other Systems Reviewed and Negative Constitutional chills, malaise Physical Exam Vital Signs Vital Signs Date Time Temp Pulse Resp B/P Pulse O2 O2 Flow FiO2 Ox Delivery Rate 02/21 1606 98.8 88 18 122/69 93 General Appearance normal appearance, WD/WN, no apparent distress Eye Exam - bilateral eye normal exam, bilateral eye PERRL, bilateral eye EOMI Neck normal inspection, non-tender, supple, full range of motion Respiratory Status Yes: trachea midline, chest symmetrical, non tender chest. No: respiratory distress, tender on palpation, use of accessory muscles, pain on inspiration, pain on expiration, productive cough, non productive cough. Lung Sounds bilateral: normal breath sounds, lungs clear. Cardiovascular normal exam, regular rate/rhythm, no peripheral edema, no gallop, no JVD, no murmur, no rub, normal peripheral pulses Gastrointestinal normal bowel sounds, normal exam, non tender, soft, no organomegaly, no pulsatile mass, no guarding, no rebound Extremities non-tender, normal range of motion, normal inspection, normal capillary refill, no calf tenderness, no pedal edema Strength 5 Upper Ext (L), 5 Upper Ext (R), 5 Lower Ext (L), 5 Lower Ext (R) Neurologic alert, normal exam, no motor/sensory deficits, oriented x 3 Glascow Coma Scale Glascow Coma Scale Response Value EYE response: 4 Spontaneously 4 MOTOR response: 6 OBEYS 6 VERBAL response: 5 Oriented & Converses 5 Total 15 Skin intact Medical Decision Making LABS/Meds/Orders Pt receiving controlled substance in ED? No Results/Orders Laboratory Tests 02/21/17 1634: Urine Color YELLOW, Urine Appearance SL CLOUDY, Urine pH 7.0, Ur Specific [place] 1.015, Urine Protein NEGATIVE, Urine Ketones NEGATIVE, Urine Blood TRACE -LYSED, Urine Nitrate POSITIVE H, Urine Bilirubin NEGATIVE, Urine Urobilinogen 0.2, Ur Leukocyte Esterase 2+ H, Urine RBC OCC, Urine WBC 5-10, Ur Squamous Epith Cells OCC, Urine Bacteria 4+, Urine Glucose NEGATIVE 02/21/17 1614: Lactic Acid 0.9 02/21/17 1614: Sodium 141, Potassium 3.9, Chloride 106, Carbon Dioxide 27, BUN 13, Creatinine 1.1 H, Estimated Creat Clear 41 L, Estimated GFR (MDRD) 48 L, Glucose 97, Calcium 9.0, Total Bilirubin 0.7, AST 16, ALT 17, Alkaline Phosphatase 64, Creatine Kinase 50, CK-MB (CK-2) Rel Index 1.0, CK and CKMB Interp 0.5, Troponin I < 0.02, Total Protein 6.7, Albumin 3.5, Globulin 3.2, Albumin/Globulin Ratio 1.1, WBC 6.9, RBC 4.39, Hgb 13.4, Hct 40.1, MCV 91.4, RDW 15.2, Plt Count 132 L , MPV 8.2, Gran % 89.7 H, Gran # 6.2, Total Counted 100, Lymphocytes % 3.1 L, Monocytes % 5.1, Eosinophils % 1.5, Basophils % 0.5, Neutrophils 84 H, Lymphocytes (Manual) 7 L, Lymphocytes # 0.2 L, Monocytes (Manual) 6, Monocytes # 0.4, Eosinophils # 0.1, Eosinophils # (Manual) 3, Basophils # 0.0, Platelet Estimate SLIGHT DECREASE, PUBS MCHC 33.4, MCH 30.6, Influenza Type A Ag NOT DETECTED, Influenza Type B Ag NOT DETECTED Current Medication Orders Sig/Brittaney Start time Last Medication Dose Route Stop Time Status Admin Sodium Chloride 10 ML PRN PRN 02/21 1645 AC IV 02/22 1631 Orders Procedure Date/time Status CULTURE, URINE 02/21 1634 Active 12 LEAD EKG-ALTON (INITIAL) 02/21 1632 Active ELECTROCARDIOGRAM REQUEST 02/21 1632 Active CHEST(2 VIEWS-NOT PORTABLE) 02/21 1632 Active IV SALINE LOCK 02/21 1632 Active CULTURE, BLOOD 02/21 1632 Active URINALYSIS/COMPLETE 02/21 1632 Complete STREP SCREEN THROAT 02/21 1632 Complete LACTIC ACID 02/21 1632 Complete INFLUENZA A&B ANTIGENS 02/21 1632 Complete CBC WITH AUTO DIFF 02/21 1632 Complete CARDIAC ENZYMES 02/21 1632 Complete CHEM 12 PROFILE 02/21 1632 Complete CULTURE, THROAT 02/21 1614 Active DIFFERENTIAL-WBC 02/21 1614 Complete XRAY/CT/US XRAY/CT/US XRAY chest XR interpretation by reviewed by me Xray Results normal/NAD, borderline CM; sternotomy wires; PM; neg acute Departure Departure Time of Disposition 1741 Disposition DC Home or Self Care(routine) Clinical Impression Primary Impression: Malaise Secondary Impressions: UTI (urinary tract infection) Qualifiers: Urinary tract infection type: acute cystitis Hematuria presence: without hematuria Qualified Code: N30.00 - Acute cystitis without hematuria Condition STABLE Referrals Melvin Mccarthy MD (Family) Patient Instructions Urinary Tract Infection Additional Instructions Bactrim, see Dr. Mccarthy for follow up next week. Discharge Counseling Counseled pt/family regarding diagnosis, test results, medications/RX, home care, follow up needs Prescriptions Current Visit Scripts SULFAMETHOXAZOLE W/TRIMETHOPRI (Bactrim Ds Tab) 1 TABLET PO BID #14 TAB ED Critical Care Critical Care No at 0742
[2017-02-21] MEDS ORDERED: BACTRIM DS 8001 TA1 PO (17:47)
--- NOTE | 2017-02-21 17:52 | RADIOLOGY REPORT PS360 ---
CHEST(2 VIEWS-NOT PORTABLE) HISTORY: WEAKNESS; NOT FEELING WELL ORDERING PHYSICIAN: Patti Cloud MD PATIENT AGE: 81 years COMPARISON: 01/28/2017 FINDINGS: There has been a prior median sternotomy. Mild cardiomegaly without failure. Cardiac pacemaker device is in place. No lobar consolidation or collapse. There is chronic coarsening of the bronchovascular markings. No effusions or infiltrates. IMPRESSION: Cardiomegaly. Chronic changes. No change with no acute finding.
[2017-02-21 17:59] VITALS: BP 113/76
== END 2017-02-21 18:03 | disposition home or self-care (01) ==
LOC: ER 16:04
PROVIDERS: Emergency Medicine
DX: N30.00 Acute cystitis without hematuria (principal); R53.83 Other fatigue; I10 Essential (primary) hypertension; I50.9 Heart failure, unspecified; K21.9 Gastro-esophageal reflux disease without esophagitis; Z88.9 Allergy status to unspecified drugs, medicaments and biological substances